=== PATIENT | male | born 1985 | race Two or more races ===

== ENCOUNTER 2019-09-17 03:11 | Emergency (ER) | payer OTHER ==
[~2019-09-17] VITALS: Ht 188 cm; Wt 73.5 kg
== END 2019-09-17 08:53 | disposition home or self-care (01) ==
LOC: ER 03:11
DX: S61.235A Puncture wound without foreign body of left ring finger without damage to nail, initial encounter (principal); W46.1XXA Contact with contaminated hypodermic needle, initial encounter; Y93.89 Activity, other specified; Y92.59 Other trade areas as the place of occurrence of the external cause; Y99.8 Other external cause status